=== PATIENT | female | born 2005 | race Two or more races ===

== ENCOUNTER 2024-08-04 17:52 | Emergency (ER) | payer MEDICAID, SELFPAY ==
[2024-08-04 17:53] VITALS: BMI 30.4
[2024-08-04 18:05] VITALS: BP 107/75; PULSE 103; RESP 16; TEMP 36.4; O2SAT 97; BMI 29.8
--- NOTE | 2024-08-04 18:22 | XR_ITS ---
Examination: PA lateral chest 2 views Technique: Upright PA lateral chest 2 views Exam date and time: August 04, 2024 1844 hrs. Comparison June 10, 2020 Indications: Coughing with chest pain beginning 3 weeks ago. Findings: Normal heart size No pneumonia or pulmonary edema On the lateral view there is a possible 12 mm pulmonary nodule overlying the cardiac contour Impression: Recommend AP lordotic chest to exclude 12 mm pulmonary nodule
--- NOTE | 2024-08-04 18:26 | PD.EDURI ---
Upper Respiratory Inf. RME/HPI General Chief Complaint: Flu Like Symptoms Stated Complaint: DRY COUGH WITH CHEST PAIN X3WK Time Seen by Provider: 08/04/24 18:22 Arrival date/time: 08/04/24 17:52 18F with no significant PMH presents to ED with 3 weeks of cough. Patient denies SOB. Limitations: no limitations Related Data Previous Rx's ?Medication ?Instructions ?Recorded albuterol sulfate 90 mcg/actuation 2 puff inhalation QID PRN 06/10/20 aerosol inhaler shortness of breath or wheezing #18 grams cetirizine 10 mg tablet (Zyrtec) 10 mg PO QDAY PRN allergy symptoms 06/10/20 #30 tabs sodium chloride 0.65 % nasal spray 2 spray intranasal QID PRN nasal 06/10/20 aerosol (Saline Nasal) congestion #60 mL ibuprofen 800 mg tablet 800 mg PO TID PRN pain #30 tabs 07/18/21 ibuprofen 800 mg tablet 800 mg PO TID PRN pain #30 tabs 02/21/24 amoxicillin 500 mg tablet 1,000 mg (2 x 500 mg) PO TID 5 08/05/24 days #30 tabs azithromycin 250 mg tablet See Rx Instructions PO .COMPLEX #6 08/05/24 tabs Allergies Allergy/AdvReac Type Severity Reaction Status Date / Time albuterol Allergy Severe SLEEPY Verified 08/04/24 17:55 Review of Systems Review of Systems Systems Reviewed: All systems reviewed, normal except as documented Constitutional Constitutional: Reports system reviewed and no additional complaints, except as documented, Denies fever(s) and Denies headache(s) ENT Ears, Nose, Mouth, and Throat: Denies disequilibrium and Denies headache(s) Cardiovascular Cardiovascular: Reports system reviewed and no additional complaints, except as documented, Denies chest pain and Denies dyspnea Respiratory Respiratory: Reports system reviewed and no additional complaints, except as documented, Reports as per HPI, Reports cough and Denies dyspnea Gastrointestinal Gastrointestinal: Reports system reviewed and no additional complaints, except as documented, Denies abdominal pain, Denies nausea and Denies vomiting Neurologic Neurologic: Reports system reviewed and no additional complaints, except as documented, Denies confusion, Denies disequilibrium and Denies headache(s) Psychiatric Psychiatric: Denies confusion Past Medical History Past Medical History CARDIAC: Negative Congestive Heart Failure RESPIRATORY: Negative Chronic Obstructive Pulmonary Disease (COPD) GENITOURINARY: Negative Renal Disease ENDOCRINE: Negative Diabetes Mellitus Type 1 or Diabetes Mellitus Type 2 Social History SMOKING STATUS: Never smoker ED Exam General Limitations: Present no limitations General appearance: Present alert and in no apparent distress Head Head exam: Present atraumatic Eye Eye exam: Present normal appearance, PERRL and EOMI ENT ENT exam: Present normal exam, normal oropharynx and mucous membranes moist Neck Neck exam: Present normal inspection, full ROM and trachea midline Chest Chest inspection: Present normal inspection and symmetric chest wall rise Expanded Respiratory Exam Location: Right: decreased breath sounds Cardiovascular Cardiovascular exam: Present regular rate, normal rhythm and normal heart sounds Abdominal Exam Abdominal exam: Present soft and normal bowel sounds Extremities Exam Extremities exam: Present normal inspection and full ROM Back Exam Back exam: Present normal inspection and full ROM Neurological Exam Neurological exam: Present alert, oriented X3 and CN II-XII intact Psychiatric Psychiatric exam: Present normal affect and normal mood Skin Skin exam: Present warm, dry, intact and normal color Course Quality Measures none Orders Category Date Time Status CT chest wo con Stat Exams 08/04/24 21:32 Completed XR chest 2V Stat Exams 08/04/24 18:22 Completed HCG Qualitative,Urine Stat Lab 08/04/24 22:15 Completed Dexamethasone Inj [Decadron Inj] Med 08/04/24 19:33 Discontinued 10 mg PO X1 ONE cefTRIAXone [Rocephin] 1,000 mg Med 08/05/24 00:03 Discontinued Lidocaine 1% 20 ml [Xylocaine 1% 20 ML] 2.1 ml IM X1 Vital Signs Vital signs: Vital Signs Temperature 97.6 F 08/04/24 18:05 Pulse Rate 103 H 08/04/24 18:05 Respiratory Rate 16 08/04/24 18:05 Blood Pressure 107/75 08/04/24 18:05 Pulse Oximetry (%) 97 08/04/24 18:05 Oxygen Delivery Method Room Air 08/04/24 18:05 O2 at 97% on RA and WNLs Upper Respiratory Infection MDM Narrative MDM Narrative:: 18F with no significant PMH presents to ED with 3 weeks of cough. Patient denies SOB. Physical exam reveals some reduced lung sounds in R side, but otherwise clear ENT. Patient is afebrile, calm, and alert. CXR reveals possible pulmonary nodule. CT reveals bilateral PNA. Patient data External records reviewed:: [facility] previous records Clinical information provided by:: patient Social determinants that could affect healthcare access:: none Patient has the following chronic illnesses:: none How is presenting disease/condition affected by chronic disease/condition?: no chronic disease Evaluation data The following diagnostics were reviewed and interpreted by me:: radiology exam(s) Lab and/or radiology exams considered but not ordered:: ordered Interpretation Summary: above Medications / Prescriptions Medications or Prescriptions considered but not ordered:: ordered Medication administrations:: Medication Administration History Discontinued Medications Ceftriaxone Sodium 1,000 mg/ (Lidocaine HCl 2.1 ml) 0 mg IM X1 ONE Stop: 08/05/24 00:04 Dexamethasone Sodium Phosphate (Dexamethasone Sod Phos Inj 10 Mg/Ml Vial) 10 mg PO X1 ONE Stop: 08/04/24 19:34 Last Admin: 08/04/24 19:59 Dose: 10 mg Documented By: MP above Consultations Consultation(s) initiated? (list below): No Diagnosis Upper Respiratory Differential Diagnosis: upper respiratory infection, croup, otitis media, sinusitis, viral infection, bronchitis, influenza, pharyngitis and other (CAP) Most likely diagnosis given after review of the tests above:: CAP Admission Indicated Admission indicated?: not indicated Admission Request Was there a request for admission?: No Disposition Plan Disposition Plan: Discharge Discharge Attestation Discharge Attestation: The patient and all family members were given an opportunity to ask questions and understood the discharge instructions. Discharge instructions specifically effects, indications for sooner follow up or return to the emergency department, and the expected course of current diagnosis. Patient condition: Stable Discharge Plan Plan Patient Disposition: HOME (Self Care) Disposition Comment: Stable Prescriptions/Referrals Prescriptions/Med Rec: New amoxicillin 500 mg tablet 1,000 mg PO TID 5 Days Qty: 30 0RF azithromycin 250 mg tablet See Rx Instructions .ROUTE .COMPLEX Qty: 6 0RF Rx Instructions: For 250 mg dose pack: take 500 mg today (day 1), then 250 mg for 4 days (days 2-5) No Action ibuprofen 800 mg tablet 800 mg PO TID PRN (Reason: pain) Qty: 30 0RF albuterol sulfate 90 mcg/actuation HFA aerosol inhaler 2 puff inhalation QID PRN (Reason: shortness of breath or wheezing) Qty: 18 0RF cetirizine [Zyrtec] 10 mg tablet 10 mg PO QDAY PRN (Reason: allergy symptoms) Qty: 30 0RF sodium chloride [Saline Nasal] 0.65 % aerosol,spray 2 spray intranasal QID PRN (Reason: nasal congestion) Qty: 60 0RF ibuprofen 800 mg tablet 800 mg PO TID PRN (Reason: pain) Qty: 30 0RF Referrals: Aggie Pena FNP [Primary Care Provider] - In 1 week Problem List Clinical Impression: CAP (community acquired pneumonia) Patient/Caregiver Discharge Instructions Education Materials: ED Pneumonia (Adult) Additional Instructions: Please follow-up with PCP within 24-48 hours and return immediately if symptoms worsen. Print Language: Swedish Stand Alone Forms: Patient Portal Info Letter PA/FLOAT OPERATOR Supervising Physician SUKUMAR/MATT Supervising Physician: Dr. Amato
[2024-08-04] MEDS: DEXAMETHASONE SOD PHOS INJ 10 MG/ML VIAL PO (19:59)
--- NOTE | 2024-08-04 21:32 | XR_ITS ---
Examination: CT chest, without intravenous contrast. Sagittal and coronal 2-D reconstructions. Exam date and time: August 04, 2024 1121 hrs. Indications: Coughing chest pain beginning 3 weeks ago CTDI:vol (mGy) 4.7 DLP: (mGycm) 479 Technique: Multiple 3.0 mm axial sections of the chest to been obtained. Bone and lung density settings are obtained. Sagittal and coronal 2-D reconstructions have been obtained. Low dose protocols were performed. One or more of the following dose reduction techniques were used; automated exposure control, adjustment of the mA and/or KV according to patient size, use of iterative reconstruction technique. Findings: Thoracic aorta pulmonary arteries appear intact No paratracheal tracheobronchial or bronchopulmonary adenopathy Soft foci of parenchymal disease in both upper lobes consistent with early pneumonia No pulmonary edema Liver and spleen appear intact Osseous structures intact No hydronephrosis Impression: Early pneumonia both upper lobes
[2024-08-04 22:58] LABS: HCG Qualitative,Urine Negative
[2024-08-04 23:02] VITALS: BP 111/77; PULSE 88; RESP 16; TEMP 36.8; O2SAT 97
[2024-08-05] MEDS: cefTRIAXone 1,000 MG, LIDOCAINE 1% 20 ML 2.1 ML IM (00:10)
== END 2024-08-05 00:17 | disposition home or self-care (01) ==
PROVIDERS: Physician Assistant; Emergency Provider Emergency Medicine; PCP Nurse Practitioner Family
DX: J18.9 Pneumonia, unspecified organism (principal)
CPT/HCPCS: 71046; 71250; 81025; 96372; 99284; J0696; J1100; J3490

== ENCOUNTER 2024-08-20 20:21 | Emergency (ER) | payer MEDICAID, SELFPAY ==
[2024-08-20 20:21] VITALS: BMI 29.6
[2024-08-20 21:09] VITALS: BP 99/68; PULSE 76; RESP 16; TEMP 36.7; O2SAT 98
--- NOTE | 2024-08-20 21:23 | XR_ITS ---
Examination: Abdomen sonogram, Limited Date and time of exam: August 20, 2024 1112 hrs. Indications: Right upper abdominal pain beginning today Technique: Real-time ferguson scale transabdominal sonographic images of the upper abdomen obtained. Findings: Normal gallbladder Normal common bile duct 0.4 cm Pancreatic head 2.1 cm Liver 14.9 cm no focal liver lesions Normal hepatopedal portal venous flow Patent IVC Impression: Negative examination
--- NOTE | 2024-08-20 21:23 | PD.EDABDPN ---
ED Abdominal Pain RME/HPI General Chief Complaint: Abdominal Pain Stated complaint: ABD PAIN Time seen by provider: 08/20/24 21:19 Arrival date/time: 08/20/24 20:21 RME / HPI RME / HPI narrative: 18-year-old female patient with no significant medical history, came in for evaluation regarding epigastric pain. Onset of symptoms about 2 hours prior to ER visit, after eating body to an eating chicken, patient developed sudden onset of epigastric pain radiating to the right upper quadrant, described as crampy, severity 8 out of 10 associated with vomiting. Denies any fever denies any other complaints no medications taken prior to arrival. Related Data Previous Rx's ?Medication ?Instructions ?Recorded albuterol sulfate 90 mcg/actuation 2 puff inhalation QID PRN 06/10/20 aerosol inhaler shortness of breath or wheezing #18 grams cetirizine 10 mg tablet (Zyrtec) 10 mg PO QDAY PRN allergy symptoms 06/10/20 #30 tabs sodium chloride 0.65 % nasal spray 2 spray intranasal QID PRN nasal 06/10/20 aerosol (Saline Nasal) congestion #60 mL ibuprofen 800 mg tablet 800 mg PO TID PRN pain #30 tabs 07/18/21 ibuprofen 800 mg tablet 800 mg PO TID PRN pain #30 tabs 02/21/24 azithromycin 250 mg tablet See Rx Instructions PO .COMPLEX #6 08/05/24 tabs Allergies Allergy/AdvReac Type Severity Reaction Status Date / Time albuterol Allergy Severe SLEEPY Verified 08/20/24 20:23 Review of Systems Review of Systems Narrative Review of Systems: Review of system reviewed and within normal limits except mentioned in HPI ED Exam Narrative Physical exam: VITAL SIGNS: Reviewed. GENERAL APPEARANCE: Alert and interactive, follows commands, no acute distress, HEAD AND FACE: Non-traumatic. ENT: PERRL, pink conjunctivitis, eyelid no trauma, Mucous membrane moist. NECK: Supple, nontender, no nuchal rigidity. CHEST: No tenderness, no crepitus, no paradoxical movement, no retractions. LUNGS: Clear, well ventilated, symmetric, no rales, no wheezing, no ronchi, no stridor, good breath sounds bilaterally. HEART: Regular rate, regular rhythm, no murmur, no gallops. ABDOMEN: Soft, positive bowel sounds, nondistended, no guarding, epigastric tenderness, no rebound, no masses, RECTAL: Deferred. GENITAL: Deferred. NEUROLOGICAL: Gross motor function intact sensory function intact, Appropriate for age. MUSCULOSKELETAL: low back nontender, full range of motion. EXTREMITIES: Nontender, full range of motion. SKIN: Color pink, dry, no rash, no lacerations, no abrasions, no contusions. LYMPHATICS: Deferred. Course Orders Category Date Time Status US gall bladder Stat Exams 08/20/24 21: Ordered CBC Stat Lab 08/20/24 21:23 Ordered Comprehensive Metabolic Panel Stat Lab 08/20/24 21: Ordered HCG Qualitative,Urine Stat Lab 08/20/24 21: Ordered Lipase Stat Lab 08/20/24 21: Ordered Partial Thromboplastin Time Stat Lab 08/20/24 21: Ordered Prothrombin Time with INR Stat Lab 08/20/24 21:23 Ordered UA, C/S IF [Urinalysis, C/S if Indicated] Stat Lab 08/20/24 21:23 Ordered Ketorolac Inj [Toradol Inj] Med 08/20/24 21:23 Once 30 mg IM X1 ONE Ondansetron Odt [Zofran Odt] Med 08/20/24 21:23 Once 4 mg PO X1 ONE Vital Signs Vital signs: Vital Signs Temperature 98.1 F 08/20/24 21:09 Pulse Rate 76 08/20/24 21:09 Respiratory Rate 16 08/20/24 21:09 Blood Pressure 99/68 08/20/24 21:09 Pulse Oximetry (%) 98 08/20/24 21:09 Oxygen Delivery Method Room Air 08/20/24 21:09 Abdominal Pain MDM MDM Narrative MDM Narrative:: 18-year-old female patient with no significant medical history, came in for evaluation regarding epigastric pain. Onset of symptoms about 2 hours prior to ER visit, after eating body to an eating chicken, patient developed sudden onset of epigastric pain radiating to the right upper quadrant, described as crampy, severity 8 out of 10 associated with vomiting. Denies any fever denies any other complaints no medications taken prior to arrival. Discharge Plan Prescriptions/Referrals Prescriptions/Med Rec: No Action ibuprofen 800 mg tablet 800 mg PO TID PRN (Reason: pain) Qty: 30 0RF albuterol sulfate 90 mcg/actuation HFA aerosol inhaler 2 puff inhalation QID PRN (Reason: shortness of breath or wheezing) Qty: 18 0RF cetirizine [Zyrtec] 10 mg tablet 10 mg PO QDAY PRN (Reason: allergy symptoms) Qty: 30 0RF sodium chloride [Saline Nasal] 0.65 % aerosol,spray 2 spray intranasal QID PRN (Reason: nasal congestion) Qty: 60 0RF azithromycin 250 mg tablet See Rx Instructions .ROUTE .COMPLEX Qty: 6 0RF Rx Instructions: For 250 mg dose pack: take 500 mg today (day 1), then 250 mg for 4 days (days 2-5) ibuprofen 800 mg tablet 800 mg PO TID PRN (Reason: pain) Qty: 30 0RF Patient/Caregiver Discharge Instructions Print Language: Montenegrin
[2024-08-20] MEDS: ONDANSETRON ODT 4 MG TABRAP PO (21:56)
[2024-08-20] MEDS: KETOROLAC INJ 60 MG/2 ML VIAL 30 MG IM (21:56)
[2024-08-20 22:05] LABS: Collection Type, Urine Clean Catch
[2024-08-20 22:12] LABS: Basophils % (Auto) 0 % (0-2.5); Eosinophils # (Auto) 0.1 Thou/mm3 (0.0-0.5); Eosinophils % (Auto) 1 % (0-10); Hematocrit 39.6 % (36.0-46.0); Hemoglobin 13.1 g/dL (12.0-16.0); Immature Granulocytes % (Auto) 0 % (0-0); Immature Granulocytes Auto 0.03 Thou/mm3 (0.00-0.00); Lymphocytes # (Auto) 2.1 Thou/mm3 (1.0-4.8); Lymphocytes % (Auto) 21 % (10-50); Mean Corpuscular HGB Conc 33.1 g/dl (31.0-37.0); Mean Corpuscular Hemoglobin 30.1 pg (25.0-35.0); Mean Corpuscular Volume 91 fL (80-100); Monocytes # (Auto) 0.7 Thou/mm3 (0.0-0.8); Monocytes % (Auto) 7 % (0-12); Neutrophils # (Auto) 7.2 Thou/mm3 (1.8-7.7); Neutrophils % (Auto) 71 % (37-80); Nucleated Red Blood Cell % 0 /100 WBC (0); Platelet Count 233 Thou/mm3 (140-440); RDW Standard Deviation 44.7 fL (36.4-46.3); Red Blood Count 4.35 Miln/mm3 (4.00-5.20); White Blood Count 10.2 Thou/mm3 (4.5-11.0)
[2024-08-20 22:16] LABS: HCG Qualitative,Urine Negative
[2024-08-20 22:29] LABS: Alanine Aminotransferase 39 U/L (10-49); Albumin, Serum 4.4 gm/dL (3.5-5.0); Albumin/Globulin Ratio 1.7 (1.2-2.2); Alkaline Phosphatase 81 U/L (46-116); Anion Gap 9 (7-16); Aspartate Amino Transferase 74 U/L (0-34); BUN/Creatinine Ratio 23 Ratio (12-20); Bilirubin,Total 0.4 mg/dL (0.3-1.2); Blood Urea Nitrogen 14 mg/dL (9-23); Calcium 9.8 mg/dL (8.3-10.6); Calcium (Corrected) 9.8 mg/dL (8.5-10.1); Carbon Dioxide 28.1 mMol/L (20.0-31.0); Chloride 103 mMol/L (98-107); Creatinine (Component) 0.6 mg/dL (0.6-1.3); Estimated Creatinine Clearance 174.1 mL/min (>60); Globulin 2.6 gm/dL (2.3-3.5); Glucose 85 mg/dL (74-106); Lipase 46 U/L (12-53); Osmolality,Calculated 278 (275-295); Potassium 3.5 mMol/L (3.4-5.1); Sodium 140 mMol/L (136-145); eGFR > 60 See Note
[2024-08-20 22:31] LABS: Bilirubin,Urine Negative (Negative); Blood,Urine 1+ (Negative); Clarity,Urine Turbid (Clear/Hazy); Color,Urine Yellow (Lt Yel-Yel); Culture Indicated,Urine Not Indicated; Glucose, Urine Negative (Negative); Ketones,Urine 1+ (Negative); Leukocyte Esterase,Urine Positive (Negative); Nitrite,Urine Negative (Negative); Protein,Urine Negative (Neg - Trace); RBC,Urine 4 /hpf (0-3); Specific Gravity,Urine 1.024 (1.001-1.035); Squamous Epithelial Cell,Urine 14 /hpf (0-5); Urobilinogen,Urine Negative mg/dL (0.0-1.0); WBC,Urine 7 /hpf (0-5)
[2024-08-20 22:42] LABS: Partial Thromboplastin Time 31.6 Seconds (22.0-36.0)
--- NOTE | 2024-08-20 23:04 | PD.EDRME ---
Rapid Medical Screening Exam RME Arrival date/time: 08/20/24 20:21 Chief Complaint: Abdominal Pain Time Seen by Provider: 08/20/24 21:19 Vital signs: Vital Signs Temperature 98.1 F 08/20/24 21:09 Pulse Rate 76 08/20/24 21:09 Respiratory Rate 16 08/20/24 21:09 Blood Pressure 99/68 08/20/24 21:09 Pulse Oximetry (%) 98 08/20/24 21:09 Oxygen Delivery Method Room Air 08/20/24 21:09 RME Narrative: 18-year-old female patient came in for evaluation regarding epigastric pain. Onset of symptoms about 2 hours prior to ER visit after eating tacos and chicken. Associated with vomiting.
--- NOTE | 2024-08-21 00:18 | EDNOTE_ITS ---
<Statement entered by Karley Ibrahim MD - 08/31/24 11:51> As co-signing physician, I was present and available for consult prn. I concur with the plan and care as documented by the midlevel provider. ED Abdominal Pain RME/HPI General Chief Complaint: Abdominal Pain Stated complaint: ABD PAIN Time seen by provider: 08/20/24 21:19 Arrival date/time: 08/20/24 20:21 18-year-old female presents emergency department complaining of epigastric pain that started earlier today after eating tacos with 1 episode of vomiting. Patient denies any other associated symptoms. Source: patient Mode of arrival: ambulatory Limitations: no limitations RME / HPI RME / HPI narrative: 18-year-old female patient came in for evaluation regarding epigastric pain. Onset of symptoms about 2 hours prior to ER visit after eating tacos and chicken. Associated with vomiting. Related Data Previous Rx's ?Medication ?Instructions ?Recorded albuterol sulfate 90 mcg/actuation 2 puff inhalation QID PRN 06/10/20 aerosol inhaler shortness of breath or wheezing #18 grams cetirizine 10 mg tablet (Zyrtec) 10 mg PO QDAY PRN allergy symptoms 06/10/20 #30 tabs sodium chloride 0.65 % nasal spray 2 spray intranasal QID PRN nasal 06/10/20 aerosol (Saline Nasal) congestion #60 mL ibuprofen 800 mg tablet 800 mg PO TID PRN pain #30 tabs 07/18/21 ibuprofen 800 mg tablet 800 mg PO TID PRN pain #30 tabs 02/21/24 azithromycin 250 mg tablet See Rx Instructions PO .COMPLEX #6 08/05/24 tabs Allergies Allergy/AdvReac Type Severity Reaction Status Date / Time albuterol Allergy Severe SLEEPY Verified 08/20/24 20:23 Review of Systems Review of Systems Systems Reviewed: All systems reviewed, normal except as documented Constitutional Constitutional: Reports system reviewed and no additional complaints, except as documented, Denies body ache(s), Denies chills and Denies fever(s) Eyes Eyes: Reports system reviewed and no additional complaints, except as documented and Denies change in vision ENT Ears, Nose, Mouth, and Throat: Reports system reviewed and no additional complaints, except as documented, Denies disequilibrium, Denies dizziness, Denies sore throat and Denies vertigo Cardiovascular Cardiovascular: Reports system reviewed and no additional complaints, except as documented, Denies chest pain and Denies dyspnea Respiratory Respiratory: Reports system reviewed and no additional complaints, except as documented, Denies chest congestion, Denies cough and Denies dyspnea Gastrointestinal Gastrointestinal: Reports system reviewed and no additional complaints, except as documented, Reports abdominal pain, Reports nausea and Reports vomiting Musculoskeletal Musculoskeletal: Reports system reviewed and no additional complaints, except as documented, Denies abnormal gait and Denies arthralgias Integumentary/Breasts Skin/Breast: Reports system reviewed and no additional complaints, except as documented, Denies erythema, Denies rash and Denies wounds Neurologic Neurologic: Reports system reviewed and no additional complaints, except as documented, Denies abnormal gait, Denies disequilibrium, Denies dizziness and Denies vertigo Past Medical History Past Medical History CARDIAC: Negative Congestive Heart Failure RESPIRATORY: Negative Chronic Obstructive Pulmonary Disease (COPD) GENITOURINARY: Negative Renal Disease ENDOCRINE: Negative Diabetes Mellitus Type 1 or Diabetes Mellitus Type 2 Social History SMOKING STATUS: Never smoker ED Exam General Limitations: Present no limitations General appearance: Present alert and in no apparent distress Head Head exam: Present atraumatic Eye Eye exam: Present normal appearance, PERRL and EOMI ENT ENT exam: Present normal exam, normal oropharynx and mucous membranes moist Neck Neck exam: Present normal inspection, full ROM and trachea midline Chest Chest inspection: Present normal inspection and symmetric chest wall rise Respiratory Respiratory exam: Present normal lung sounds bilaterally Cardiovascular Cardiovascular exam: Present regular rate, normal rhythm and normal heart sounds Abdominal Exam Abdominal exam: Present soft and normal bowel sounds Extremities Exam Extremities exam: Present normal inspection and full ROM Back Exam Back exam: Present normal inspection and full ROM Neurological Exam Neurological exam: Present alert, oriented X3 and CN II-XII intact Psychiatric Psychiatric exam: Present normal affect and normal mood Skin Skin exam: Present warm, dry, intact and normal color Course Quality Measures none Orders Category Date Time Status US gall bladder Stat Exams 08/20/24 21:23 Completed CBC Stat Lab 08/20/24 21:44 Completed Comprehensive Metabolic Panel Stat Lab 08/20/24 21:44 Completed HCG Qualitative,Urine Stat Lab 08/20/24 21:59 Completed Lipase Stat Lab 08/20/24 21:44 Completed Partial Thromboplastin Time Stat Lab 08/20/24 21:44 Completed Prothrombin Time with INR Stat Lab 12/14/24 21:44 Completed UA, C/S IF [Urinalysis, C/S if Indicated] Stat Lab 08/20/24 21:59 Completed Ketorolac Inj [Toradol Inj] Med 08/20/24 21:23 Discontinued 30 mg IM X1 ONE Ondansetron Odt [Zofran Odt] Med 08/20/24 21:23 Discontinued 4 mg PO X1 ONE Vital Signs Vital signs: Vital Signs Temperature 98.1 F 08/20/24 21:09 Pulse Rate 76 08/20/24 21:09 Respiratory Rate 16 08/20/24 21:09 Blood Pressure 99/68 08/20/24 21:09 Pulse Oximetry (%) 98 08/20/24 21:09 Oxygen Delivery Method Room Air 08/20/24 21:09 98% room air within normal limits Abdominal Pain MDM MDM Narrative MDM Narrative:: 18-year-old female presents emergency department complaining of epigastric pain that started earlier today after eating tacos with 1 episode of vomiting. Patient denies any other associated symptoms. Abdomen soft and nontender. CBC was unremarkable for any leukocytosis. CMP was unremarkable for any elevated LFTs or gross electrolyte abnormalities. Urinalysis also unremarkable. Ultrasound gallbladder was also unremarkable. Patient appears nontoxic and is hemodynamically stable. Patient reports feeling a lot better and did not have any vomiting episodes while in the emergency room. Patient structured to follow-up with primary care provider return to emergency department for any worsening symptoms or as needed. Patient data External records reviewed:: [facility] previous records Clinical information provided by:: patient and family Social determinants that could affect healthcare access:: none Patient has the following chronic illnesses:: N/A How is presenting disease/condition affected by chronic disease/condition?: no chronic disease Evaluation data The following diagnostics were reviewed and interpreted by me:: lab results and radiology exam(s) Lab and/or radiology exams considered but not ordered:: Ordered Interpretation Summary: Interpreted by me Medications / Prescriptions Medications or Prescriptions considered but not ordered:: Ordered Medication administrations:: Medication Administration History Discontinued Medications Ketorolac Tromethamine (Ketorolac Inj 60 Mg/2 Ml Vial) 30 mg IM X1 ONE Stop: 08/20/24 21:24 Last Admin: 08/20/24 21:56 Dose: 30 mg Documented By: Ondansetron HCl (Ondansetron Odt 4 Mg Tabrap) 4 mg PO X1 ONE; Protocol Stop: 08/20/24 21:24 Last Admin: 08/20/24 21:56 Dose: 4 mg Documented By: SE Given Consultations Consultation(s) initiated? (list below): No Diagnosis Differential diagnosis abdominal pain: abdominal pain, acute appendicitis, calculus of kidney, constipation, diverticulitis, endometriosis, gastroenteritis, pancreatitis and small bowel obstruction Most likely diagnosis given after review of the tests above:: Abdominal pain Admission Indicated Admission indicated?: not indicated Admission Request Was there a request for admission?: No Disposition Plan Disposition Plan: Discharge Discharge Attestation Discharge Attestation: The patient and all family members were given an opportunity to ask questions and understood the discharge instructions. Discharge instructions specifically effects, indications for sooner follow up or return to the emergency department, and the expected course of current diagnosis. Patient condition: Stable Discharge Plan Plan Patient Disposition: HOME (Self Care) Disposition Comment: Stable Prescriptions/Referrals Prescriptions/Med Rec: No Action ibuprofen 800 mg tablet 800 mg PO TID PRN (Reason: pain) Qty: 30 0RF albuterol sulfate 90 mcg/actuation HFA aerosol inhaler 2 puff inhalation QID PRN (Reason: shortness of breath or wheezing) Qty: 18 0RF cetirizine [Zyrtec] 10 mg tablet 10 mg PO QDAY PRN (Reason: allergy symptoms) Qty: 30 0RF sodium chloride [Saline Nasal] 0.65 % aerosol,spray 2 spray intranasal QID PRN (Reason: nasal congestion) Qty: 60 0RF azithromycin 250 mg tablet See Rx Instructions .ROUTE .COMPLEX Qty: 6 0RF Rx Instructions: For 250 mg dose pack: take 500 mg today (day 1), then 250 mg for 4 days (days 2-5) ibuprofen 800 mg tablet 800 mg PO TID PRN (Reason: pain) Qty: 30 0RF Referrals: No Primary/Family,Physician [Primary Care Provider] - In 1 week Problem List Clinical Impression: Abdominal pain Patient/Caregiver Discharge Instructions Discharge Activity: activity as tolerated Education Materials: Abdominal Pain Additional Instructions: Drink plenty of fluids and stay hydrated. Follow-up with primary care provider in 24 to 48 hours. Return to emergency department for any worsening symptoms or as needed. Print Language: Ukrainian Stand Alone Forms: Alicia Award Info., Patient Portal Info Letter PA/RECEPTIONIST/TELEPHONE OPERATOR Supervising Physician PA/RECEPTIONIST/TELEPHONE OPERATOR Supervising Physician: Dr. Ibrahim
[2024-08-21 00:24] VITALS: RESP 18
== END 2024-08-21 00:25 | disposition home or self-care (01) ==
PROVIDERS: Nurse Practitioner Family; Emergency Provider Emergency Medicine
DX: R10.13 Epigastric pain (principal); R10.11 Right upper quadrant pain; R11.10 Vomiting, unspecified
CPT/HCPCS: 36415; 76705; 80053; 81001; 81025; 83690; 85025; 85610; 85730; 96372; 99284; J1885; Q0162

== ENCOUNTER 2025-03-06 16:57 | Emergency (ER) | payer MEDICAID, SELFPAY ==
[2025-03-06 17:06] VITALS: BP 98/63; PULSE 76; RESP 19; TEMP 36.6; O2SAT 99; BMI 28.8
--- NOTE | 2025-03-06 17:46 | EDNOTE_ITS ---
ED OB Contraction Preg RMI/HPI General Chief complaint: Vaginal Bleeding Stated complaint: 5 weeks OB, vaginal bleeding Time Seen by Provider: 03/06/25 17:38 Arrival date/time: 03/06/25 16:57 RME / HPI RME / HPI Narrative: 19-year-old female with no past medical history presents to the ED with a complaint of vaginal bleeding and cramping. She is . She states her symptoms began last night at approximately 8 PM. She went to [facility] last night. She was told she was approximately 5 weeks . An ultrasound revealed a gestational sac but no pole. She was told her beta-hCG quant was approximately 2800. She was also diagnosed with a UTI, and told she was having a threatened miscarriage. She was prescribed an antibiotic and has had 1 dose. Since 10 AM, she has fully soaked 2 maxi pads in the bleeding and cramping is getting worse with a passage of large clots since her arrival in the ED. Related Data Previous Rx's ?Medication ?Instructions ?Recorded albuterol sulfate 90 mcg/actuation 2 puff inhalation Q ID PRN 06/10/20 aerosol inhaler shortness of breath or wheez ing #18 grams cetirizine 10 mg tablet (Zyrtec) 10 mg PO QDAY PRN all ergy symptoms 06/10/20 #30 tabs sodium chloride 0.65 % nasal spray 2 spray intranasal QID PRN nasal 06/10/20 aerosol (Saline Nasal) congestion #60 mL ibuprofen 800 mg tablet 800 mg PO TID PRN pain #30 t abs 07/18/21 ibuprofen 800 mg tablet 800 mg PO TID PRN pain #30 t abs 02/21/24 azithromycin 250 mg tablet See Rx Instructions PO .COM PLEX #6 08/05/24 tabs Allergies Allergy/AdvReac Type Severity Reaction Status Date / Time albuterol Allergy Severe SLEEPY Verified 03/06/25 17:01 Review of Systems Review of Systems Systems Reviewed: All systems reviewed, normal except as documented Past Medical History Past Medical History CARDIAC: Negative Congestive Heart Failure RESPIRATORY: Negative Chronic Obstructive Pulmonary Disease (COPD) GENITOURINARY: Negative Renal Disease ENDOCRINE: Negative Diabetes Mellitus Type 1 or Diabetes Mellitus Type 2 Social History SMOKING STATUS: Never smoker ED Exam Narrative Physical exam: Alert and oriented 19-year-old female, mild acute pain distress and requesting something for pain. Vital signs blood pressure 98/63, pulse 76, respirations 19 and nonlabored, temp 97.8, O2 sat 99% on room air. Lungs are clear, regular rate and rhythm without murmurs, abdomen is soft with mild suprapubic and bilateral pelvic tenderness. No CVA tenderness noted. Urine cup sitting at bedside with large clots, no obvious tissue noted. Course Course Course Narrative: OB ultrasound Findings: Uterus 7.0 cm endometrial stripe 0.64 cm. Pedunculated fibroid off the uterine body 22 x 22 x 18 mm. Right ovary 4.3 cm arterial flow 18 mm follicular cyst. Left ovary 3.0 cm arterial flow. IMPRESSION: No intrauterine gestation. 22 x 22 x 18 mm uterine area of fibroid degeneration. Quality Measures none Orders Category Date Time Status US OB <= 14 weeks fetus Stat Exams 03/06/25 17:51 Completed ABO/RH Type Stat Lab 03/06/25 18:16 Completed Beta HCG,Quantitative Stat Lab 03/06/25 18:16 Completed CBC Stat Lab 03/06/25 18:16 Completed CMP [Comprehensive Metabolic Panel] Stat Lab 03/06/25 18:16 Completed UA, C/S IF [Urinalysis, C/S if Indicated] Stat Lab 03/06/25 17:51 Ordered Urine Culture Stat Lab 03/06/25 17:51 Ordered Vital Signs Vital signs: Vital Signs Temperature 97.8 F 03/06/25 17:06 Pulse Rate 76 03/06/25 17:06 Respiratory Rate 19 03/06/25 17:06 Blood Pressure 98/63 03/06/25 17:06 Pulse Oximetry (%) 99 03/06/25 17:06 Oxygen Delivery Method Room Air 03/06/25 17:06 Vaginal Bleeding MDM Narrative MDM Narrative: Advised patient to follow-up with her primary care physician tomorrow for referral to an [facility]. She is advised that if she cannot get into an [facility] by Thursday, she needs to return here for repeat hCG as well as ultrasound to rule out ectopic . She understands the need for close follow-up within 48 hours. Patient data External records reviewed:: None Clinical information provided by:: patient Social determinants that could affect healthcare access:: none Patient has the following chronic illnesses:: N/A How is presenting disease/condition affected by chronic disease/condition?: no chronic disease Evaluation data The following diagnostics were reviewed and interpreted by me:: lab results and radiology exam(s) Lab and/or radiology exams considered but not ordered:: N/A Interpretation Summary: Labs reveal a normal white count of 8.6, normal H&H of 13.3 and 39.4 with normal platelets of 211. CMP reveals normal electrolytes, normal BUN and creatinine, minimally elevated glucose of 109, and normal LFTs. Beta-hCG is 1773. Blood type is O+. OB ultrasound Findings: Uterus 7.0 cm endometrial stripe 0.64 cm. Pedunculated fibroid off the uterine body 22 x 22 x 18 mm. Right ovary 4.3 cm arterial flow 18 mm follicular cyst. Left ovary 3.0 cm arterial flow. IMPRESSION: No intrauterine gestation. 22 x 22 x 18 mm uterine area of fibroid degeneration. Medications / Prescriptions Medications or Prescriptions considered but not ordered:: N/A Medication administrations:: N/A Consultations Consultation(s) initiated? (list below): Yes Diagnosis Vaginal Bleeding Differential Diagnosis: missed , incomplete , ectopic without intrauterine and other (Complete ) Most likely diagnosis given after review of the tests above:: No intrauterine gestation, cannot exclude ectopic Admission Indicated Admission indicated?: not indicated Explain why admission is indicated or not indicated:: Patient is stable for discharge. Admission Request Was there a request for admission?: No Disposition Plan Disposition Plan: Discharge Discharge Attestation Discharge Attestation: The patient and all family members were given an opportunity to ask questions and understood the discharge instructions. Discharge instructions specifically effects, indications for sooner follow up or return to the emergency department, and the expected course of current diagnosis. Patient condition: Stable Discharge Plan Plan Patient Disposition: HOME (Self Care) Discharge Disposition comment: Stable and improved Prescriptions/Referrals Prescriptions/Med Rec: No Action ibuprofen 800 mg tablet 800 mg PO TID PRN (Reason: pain) Qty: 30 0RF albuterol sulfate 90 mcg/actuation HFA aerosol inhaler 2 puff inhalation QID PRN (Reason: shortness of breath or wheezing) Qty: 18 0RF cetirizine [Zyrtec] 10 mg tablet 10 mg PO QDAY PRN (Reason: allergy symptoms) Qty: 30 0RF sodium chloride [Saline Nasal] 0.65 % aerosol,spray 2 spray intranasal QID PRN (Reason: nasal congestion) Qty: 60 0RF azithromycin 250 mg tablet See Rx Instructions .ROUTE .COMPLEX Qty: 6 0RF Rx Instructions: For 250 mg dose pack: take 500 mg today (day 1), then 250 mg for 4 days (days 2-5) ibuprofen 800 mg tablet 800 mg PO TID PRN (Reason: pain) Qty: 30 0RF Referrals: No Primary/Family,Physician [Primary Care Provider] - In 1 week Problem List Clinical Impression: Vaginal bleeding, Uterine fibroid Impression comment: Cannot exclude ectopic without intrauterine . Patient/Caregiver Discharge Instructions Education Materials: ED Dysfunctional Uterine Bleeding, ED Uterine Fibroids Additional Instructions: Your quantitative hCG is currently at 1773, down from 2800 last night (per your recollection). You currently do no have an elevated white count or any signs of Anemia. Continue taking the antibiotic for your UTI until they are finished. Take Tylenol for any pain you are experiencing. Follow-up with your primary care physician tomorrow for referral to an [facility]. If you cannot get into an [facility] by Thursday, you needs to return here for repeat hCG as well as ultrasound to rule out ectopic . You understand the need for close follow-up within 48 hours. Return to the emergency department for any new or worsening symptoms. Print Language: Cypriot Stand Alone Forms: Alicia Award Info., Patient Portal Info Letter PA/MATT Supervising Physician SUKUMAR/MATT Supervising Physician: Dr. Nazario
--- NOTE | 2025-03-06 17:51 | XR_ITS ---
Examination: Complete OB ultrasound, less than 14 weeks, transabdominal Date and time of exam: March 06, 2025, 1817 hours INDICATIONS: Vaginal bleeding beginning 8:00 PM last night Technique: Obstetrical ultrasound images less than 14 weeks performed via transabdominal imaging Findings: Uterus 7.0 cm endometrial stripe 0.64 cm Pedunculated fibroid off the uterine body 22 x 22 x 18 mm Right ovary 4.3 cm arterial flow 18 mm follicular cyst Left ovary 3.0 cm arterial flow IMPRESSION: No intrauterine gestation 22 x 22 x 18 mm uterine area of fibroid degeneration
[2025-03-06 18:23] LABS: Basophils % (Auto) 1 % (0-2.5); Eosinophils % (Auto) 1 % (0-10); Hematocrit 39.4 % (36.0-46.0); Hemoglobin 13.3 g/dL (12.0-16.0); Immature Granulocytes % (Auto) 1 % (0-0); Immature Granulocytes Auto 0.07 Thou/mm3 (0.00-0.00); Lymphocytes # (Auto) 1.6 Thou/mm3 (1.0-4.8); Lymphocytes % (Auto) 19 % (10-50); Mean Corpuscular HGB Conc 33.8 g/dl (31.0-37.0); Mean Corpuscular Hemoglobin 31.1 pg (25.0-35.0); Mean Corpuscular Volume 92 fL (80-100); Monocytes # (Auto) 0.5 Thou/mm3 (0.0-0.8); Monocytes % (Auto) 5 % (0-12); Neutrophils # (Auto) 6.4 Thou/mm3 (1.8-7.7); Neutrophils % (Auto) 75 % (37-80); Nucleated Red Blood Cell % 0 /100 WBC (0); Platelet Count 211 Thou/mm3 (140-440); RDW Standard Deviation 41.3 fL (36.4-46.3); Red Blood Count 4.28 Miln/mm3 (4.00-5.20); White Blood Count 8.6 Thou/mm3 (3.6-11.0)
[2025-03-06 18:41] VITALS: BP 97/59; PULSE 69; RESP 18; TEMP 36.6; O2SAT 96
[2025-03-06 18:58] LABS: Alanine Aminotransferase 15 U/L (10-49); Albumin, Serum 4.3 gm/dL (3.5-5.0); Alkaline Phosphatase 59 U/L (46-116); Anion Gap 8 (7-16); Aspartate Amino Transferase 19 U/L (0-34); BUN/Creatinine Ratio 8 Ratio (12-20); Beta HCG,Quantitative 1773 mIU/mL (<5.0); Bilirubin,Total 0.3 mg/dL (0.3-1.2); Blood Urea Nitrogen 5 mg/dL (9-23); Calcium 9.5 mg/dL (8.3-10.6); Calcium (Corrected) 9.5 mg/dL (8.5-10.1); Chloride 105 mMol/L (98-107); Creatinine (Component) 0.6 mg/dL (0.6-1.3); Estimated Creatinine Clearance 170.5 mL/min (>60); Globulin 2.2 gm/dL (2.3-3.5); Glucose 109 mg/dL (74-106); Osmolality,Calculated 272 (275-295); Potassium 3.6 mMol/L (3.4-5.1); Sodium 137 mMol/L (136-145); Total Protein 6.5 gm/dL (5.7-8.2); eGFR > 60 See Note
[2025-03-06 19:00] VITALS: BP 105/66; PULSE 87; RESP 14; O2SAT 96
[2025-03-06 20:00] VITALS: BP 89/64; PULSE 77; RESP 18; TEMP 36.4; O2SAT 100
[2025-03-06 20:02] VITALS: BP 97/71; PULSE 70; RESP 16; O2SAT 100
--- NOTE | 2025-03-06 20:36 | PC.NURSE ---
pot is resting quietly with family at bedside. states pain is mild at this time. BP systolic 90s. pt states 90s is normal for her.
[2025-03-06 21:50] VITALS: BP 102/71; PULSE 80; RESP 16; TEMP 37; O2SAT 98
== END 2025-03-06 21:55 | disposition home or self-care (01) ==
PROVIDERS: Physician Assistant; Emergency Provider Emergency Medicine
DX: O20.9 Hemorrhage in early pregnancy, unspecified (principal); D25.9 Leiomyoma of uterus, unspecified
CPT/HCPCS: 36415; 76801; 80053; 81001; 84702; 85025; 86900; 86901; 87086; 99284

== ENCOUNTER 2025-03-08 12:18 | Emergency (ER) | payer MEDICAID, SELFPAY ==
[2025-03-08 12:18] VITALS: BMI 29.6
[2025-03-08 12:33] VITALS: BP 105/71; PULSE 76; RESP 16; TEMP 36.8; O2SAT 99
--- NOTE | 2025-03-08 12:52 | XR_ITS ---
Examination: OB Transvaginal ultrasound of the pelvis, complete Technique: Transvaginal sonographic images pelvis performed using ferguson scale imaging Exam date and time: March 08, 2025 1400 hours INDICATIONS: Miscarriage 3 days ago followed by vaginal bleeding FINDINGS: Uterus 8.4 cm endometrial stripe 0.6 cm Mild free fluid in the endometrium Right ovary 3.4 cm arterial flow 15 mm follicular cyst Left ovary 2.2 cm arterial flow IMPRESSION: No uterine mass or findings of retained products of conception.
--- NOTE | 2025-03-08 13:10 | EDNOTE_ITS ---
<Statement entered by Karley Ibrahim MD - 03/17/25 19:14> As co-signing physician, I was present and available for consult prn. I concur with the plan and care as documented by the midlevel provider. ED OB Contraction Preg RMI/HPI General Chief complaint: General Adult/Misc Complain Stated complaint: F/U ULTRASOUND & LABS FOR ECTOPIC Time Seen by Provider: 03/08/25 12:30 Source: patient Arrival date/time: 03/08/25 12:18 19-year-old female with no known medical history presents to the emergency room with a chief complaint of needing a follow-up ultrasound to rule out an ectopic or miscarriage. Patient was seen here on 03/06/2025. Mode of arrival: ambulatory Limitations: no limitations Related Data Previous Rx's ?Medication ?Instructions ?Recorded albuterol sulfate 90 mcg/actuation 2 puff inhalation Q ID PRN 06/10/20 aerosol inhaler shortness of breath or wheez ing #18 grams cetirizine 10 mg tablet (Zyrtec) 10 mg PO QDAY PRN all ergy symptoms 06/10/20 #30 tabs sodium chloride 0.65 % nasal spray 2 spray intranasal QID PRN nasal 06/10/20 aerosol (Saline Nasal) congestion #60 mL ibuprofen 800 mg tablet 800 mg PO TID PRN pain #30 t abs 07/18/21 ibuprofen 800 mg tablet 800 mg PO TID PRN pain #30 t abs 02/21/24 azithromycin 250 mg tablet See Rx Instructions PO .COM PLEX #6 08/05/24 tabs Allergies Allergy/AdvReac Type Severity Reaction Status Date / Time albuterol Allergy Severe SLEEPY Verified 03/08/25 12:20 Review of Systems Review of Systems Systems Reviewed: All systems reviewed, normal except as documented Constitutional Constitutional: Reports system reviewed and no additional complaints, except as documented, Denies fatigue, Denies fever(s), Denies headache(s) and Denies weakness Eyes Eyes: Reports system reviewed and no additional complaints, except as documented, Denies blurry vision and Denies change in vision ENT Ears, Nose, Mouth, and Throat: Reports system reviewed and no additional complaints, except as documented, Denies otalgia, Denies headache(s), Denies nasal congestion, Denies throat swelling and Denies vertigo Cardiovascular Cardiovascular: Reports system reviewed and no additional complaints, except as documented, Denies chest pain, Denies dyspnea and Denies dyspnea on exertion Respiratory Respiratory: Reports system reviewed and no additional complaints, except as documented, Denies chest congestion, Denies cough, Denies dyspnea, Denies dyspnea on exertion and Denies wheezing Gastrointestinal Gastrointestinal: Reports system reviewed and no additional complaints, except as documented, Denies abdominal pain, Denies cramping, Denies nausea and Denies vomiting Genitourinary Genitourinary: Reports system reviewed and no additional complaints, except as documented and Reports abnormal vaginal bleeding Musculoskeletal Musculoskeletal: Reports system reviewed and no additional complaints, except as documented and Denies back pain Integumentary/Breasts Skin/Breast: Reports system reviewed and no additional complaints, except as documented and Denies wounds Neurologic Neurologic: Reports system reviewed and no additional complaints, except as documented, Denies confusion, Denies headache(s), Denies lack of coordination, Denies vertigo and Denies weakness Psychiatric Psychiatric: Reports system reviewed and no additional complaints, except as documented, Denies anxiety, Denies confusion, Denies depression, Denies paranoia, Denies suicidal ideation and Denies tactile hallucinations Endocrine Endocrine: Reports system reviewed and no additional complaints, except as documented and Denies fatigue Hematologic/Lymphatic Hematologic/Lymphatic: Reports system reviewed and no additional complaints, except as documented and Denies lymphadenopathy Allergic/Immunologic Allergic/Immunologic: Reports system reviewed and no additional complaints, except as documented, Denies throat swelling, Denies urticaria and Denies wheezing Past Medical History Past Medical History CARDIAC: Negative Congestive Heart Failure RESPIRATORY: Negative Chronic Obstructive Pulmonary Disease (COPD) GENITOURINARY: Negative Renal Disease ENDOCRINE: Negative Diabetes Mellitus Type 1 or Diabetes Mellitus Type 2 Social History SMOKING STATUS: Never smoker ED Exam General Limitations: Present no limitations General appearance: Present alert and in no apparent distress Head Head exam: Present atraumatic Eye Eye exam: Present normal appearance, PERRL and EOMI ENT ENT exam: Present normal exam, normal oropharynx and mucous membranes moist Neck Neck exam: Present normal inspection, full ROM and trachea midline Chest Chest inspection: Present normal inspection and symmetric chest wall rise Respiratory Respiratory exam: Present normal lung sounds bilaterally Cardiovascular Cardiovascular exam: Present regular rate, normal rhythm and normal heart sounds Abdominal Exam Abdominal exam: Present soft and normal bowel sounds; Absent distention, tenderness, guarding, rebound or rigidity Extremities Exam Extremities exam: Present normal inspection and full ROM Back Exam Back exam: Present normal inspection and full ROM Neurological Exam Neurological exam: Present alert, oriented X3 and CN II-XII intact Psychiatric Psychiatric exam: Present normal affect and normal mood Skin Skin exam: Present warm, dry, intact and normal color Course Quality Measures none Orders Category Date Time Status US OB transvaginal Stat Exams 03/08/25 12:52 Completed ABO/RH Type Stat Lab 03/08/25 13:06 Completed Beta HCG,Quantitative Stat Lab 03/08/25 13:06 Completed CBC Stat Lab 03/08/25 13:06 Completed CMP [Comprehensive Metabolic Panel] Stat Lab 03/08/25 13:06 Completed UA [Urinalysis] Stat Lab 03/08/25 14:45 Completed Vital Signs Vital signs: Vital Signs Temperature 98.3 F 03/08/25 12:33 Pulse Rate 76 03/08/25 12:33 Respiratory Rate 16 03/08/25 12:33 Blood Pressure 105/71 03/08/25 12:33 Pulse Oximetry (%) 99 03/08/25 12:33 Oxygen Delivery Method Room Air 03/08/25 12:33 O2 saturation 99% within normal limits Vaginal Bleeding MDM Narrative MDM Narrative: 19-year-old female with no known medical history presents to the emergency room with a chief complaint of needing a follow-up ultrasound to rule out an ectopic or miscarriage. Patient was seen here on 03/06/2025. Patient is hemodynamically stable and in no apparent distress Patient has a soft nontender abdomen patient denies any pelvic pain or abdominal pain. Patient states her bleeding has significantly decreased but she is still spotting when she wipes Ultrasound OB was completed and there is no intrauterine mass or any retained products of conception. The patient hCG levels dropped from 1741 on 03/06/2025 down to 530 today I spoke to the patient and told her that she had a miscarriage. Patient was educated to follow-up with her [facility] Patient was discharged and educated to follow-up with primary care provider in the next 24 to 48 hours and return to the emergency room for any evidence of w orsening signs or symptoms Patient data External records reviewed:: [facility] previous records Clinical information provided by:: patient Social determinants that could affect healthcare access:: none Patient has the following chronic illnesses:: No chronic illness How is presenting disease/condition affected by chronic disease/condition?: no chronic disease Evaluation data The following diagnostics were reviewed and interpreted by me:: lab results and radiology exam(s) Lab and/or radiology exams considered but not ordered:: Labs and radiology exams considered and ordered Interpretation Summary: Transvaginal OB ultrasound-FINDINGS: Uterus 8.4 cm endometrial stripe 0.6 cm Mild free fluid in the endometrium Right ovary 3.4 cm arterial flow 15 mm follicular cyst Left ovary 2.2 cm arterial flow IMPRESSION: No uterine mass or findings of retained products of conception. Medications / Prescriptions Medications or Prescriptions considered but not ordered:: No medication given Medication administrations:: No medication given Consultations Consultation(s) initiated? (list below): No Diagnosis Vaginal Bleeding Differential Diagnosis: missed , dysfunctional uterine bleeding, incomplete , ectopic without intrauterine , vaginal bleeding and other (Spontaneous ) Most likely diagnosis given after review of the tests above:: Spontaneous Admission Indicated Admission indicated?: not indicated Admission Request Was there a request for admission?: No Disposition Plan Disposition Plan: Discharge Discharge Attestation Discharge Attestation: The patient and all family members were given an opportunity to ask questions and understood the discharge instructions. Discharge instructions specifically effects, indications for sooner follow up or return to the emergency department, and the expected course of current diagnosis. Patient condition: Stable Discharge Plan Plan Patient Disposition: HOME (Self Care) Discharge Disposition comment: Stable Prescriptions/Referrals Prescriptions/Med Rec: No Action ibuprofen 800 mg tablet 800 mg PO TID PRN (Reason: pain) Qty: 30 0RF albuterol sulfate 90 mcg/actuation HFA aerosol inhaler 2 puff inhalation QID PRN (Reason: shortness of breath or wheezing) Qty: 18 0RF cetirizine [Zyrtec] 10 mg tablet 10 mg PO QDAY PRN (Reason: allergy symptoms) Qty: 30 0RF sodium chloride [Saline Nasal] 0.65 % aerosol,spray 2 spray intranasal QID PRN (Reason: nasal congestion) Qty: 60 0RF azithromycin 250 mg tablet See Rx Instructions .ROUTE .COMPLEX Qty: 6 0RF Rx Instructions: For 250 mg dose pack: take 500 mg today (day 1), then 250 mg for 4 days (days 2-5) ibuprofen 800 mg tablet 800 mg PO TID PRN (Reason: pain) Qty: 30 0RF Referrals: Aggie Pena FNP [Primary Care Provider] - In 1 week Problem List Clinical Impression: Spontaneous Patient/Caregiver Discharge Instructions Education Materials: Understanding Miscarriage ..., Miscarriage Trying Again, Discharge Instructions for ..., ED MISCARRIAGE Completed Additional Instructions: Please follow-up with your primary care provider in the next 24 to 48 hours Please follow-up with your [facility] in the next 24 to 48 hours For any evidence of worsening signs or symptoms return to the emergency room immediately Print Language: Colombian Stand Alone Forms: Alicia Award Info., Work/School Release, Patient Portal Info Letter SUKUMAR/MATT Supervising Physician SUKUMAR/MATT Supervising Physician: Dr. IBRAHIM
[2025-03-08 13:34] LABS: Basophils # (Auto) 0.0 Thou/mm3 (0.0-0.2); Basophils % (Auto) 0 % (0-2.5); Eosinophils # (Auto) 0.0 Thou/mm3 (0.0-0.5); Eosinophils % (Auto) 0 % (0-10); Hematocrit 38.8 % (36.0-46.0); Hemoglobin 13.4 g/dL (12.0-16.0); Immature Granulocytes Auto 0.02 Thou/mm3 (0.00-0.00); Lymphocytes # (Auto) 1.5 Thou/mm3 (1.0-4.8); Lymphocytes % (Auto) 20 % (10-50); Mean Corpuscular HGB Conc 34.5 g/dl (31.0-37.0); Mean Corpuscular Hemoglobin 31.4 pg (25.0-35.0); Mean Corpuscular Volume 91 fL (80-100); Monocytes # (Auto) 0.4 Thou/mm3 (0.0-0.8); Monocytes % (Auto) 6 % (0-12); Neutrophils # (Auto) 5.6 Thou/mm3 (1.8-7.7); Neutrophils % (Auto) 74 % (37-80); Nucleated Red Blood Cell # 0.00 Thou/mm3 (0.00-0.00); Nucleated Red Blood Cell % 0 /100 WBC (0); Platelet Count 264 Thou/mm3 (140-440); RDW Standard Deviation 41.1 fL (36.4-46.3); Red Blood Count 4.27 Miln/mm3 (4.00-5.20); White Blood Count 7.6 Thou/mm3 (3.6-11.0)
[2025-03-08 14:00] LABS: Alanine Aminotransferase 17 U/L (10-49); Albumin, Serum 4.3 gm/dL (3.5-5.0); Albumin/Globulin Ratio 1.7 (1.2-2.2); Alkaline Phosphatase 67 U/L (46-116); Anion Gap 9 (7-16); Aspartate Amino Transferase 20 U/L (0-34); BUN/Creatinine Ratio 11 Ratio (12-20); Beta HCG,Quantitative 530 mIU/mL (<5.0); Bilirubin,Total 0.4 mg/dL (0.3-1.2); Blood Urea Nitrogen 8 mg/dL (9-23); Calcium 9.5 mg/dL (8.3-10.6); Calcium (Corrected) 9.5 mg/dL (8.5-10.1); Carbon Dioxide 24.7 mMol/L (20.0-31.0); Chloride 108 mMol/L (98-107); Creatinine (Component) 0.7 mg/dL (0.6-1.3); Estimated Creatinine Clearance 148.0 mL/min (>60); Globulin 2.6 gm/dL (2.3-3.5); Glucose 94 mg/dL (74-106); Osmolality,Calculated 281 (275-295); Potassium 3.9 mMol/L (3.4-5.1); Sodium 142 mMol/L (136-145); Total Protein 6.9 gm/dL (5.7-8.2); eGFR > 60 See Note
[2025-03-08 15:03] LABS: Collection Type, Urine Clean Catch
[2025-03-08 15:14] LABS: Bacteria,Urine Rare; Bilirubin,Urine Negative (Negative); Blood,Urine 3+ (Negative); Clarity,Urine Turbid (Clear/Hazy); Color,Urine Yellow (Lt Yel-Yel); Glucose, Urine Negative (Negative); Ketones,Urine 4+ (Negative); Leukocyte Esterase,Urine Positive (Negative); Nitrite,Urine Positive (Negative); PH,Urine 6.0 (5.0-7.0); Protein,Urine 1+ (Neg - Trace); RBC,Urine 41 /hpf (0-3); Specific Gravity,Urine 1.032 (1.001-1.035); Squamous Epithelial Cell,Urine 14 /hpf (0-5); Urobilinogen,Urine Negative mg/dL (0.0-1.0); WBC,Urine 104 /hpf (0-5)
== END 2025-03-08 15:04 | disposition home or self-care (01) ==
PROVIDERS: Nurse Practitioner Family; Emergency Provider Emergency Medicine; PCP Nurse Practitioner Family
DX: O03.9 Complete or unspecified spontaneous abortion without complication (principal)
CPT/HCPCS: 36415; 76817; 80053; 81001; 84702; 85025; 86900; 86901; 99284

== ENCOUNTER 2025-08-04 12:11 | Emergency (ER) | payer MEDICAID, SELFPAY ==
[2025-08-04 12:36] VITALS: BP 130/68; PULSE 77; RESP 18; TEMP 36.9; O2SAT 100; BMI 25.8
--- NOTE | 2025-08-04 12:40 | EDNOTE_ITS ---
Lower Extremity Injury RME/HPI General Chief Complaint: Ankle/Foot Injury Stated Complaint: LEFT FOOT PAIN Time Seen by Provider: 08/04/25 12:25 Source: patient Arrival date/time: 08/04/25 12:11 19-year-old female with no known medical history presents to the emergency room with a chief complaint of tenderness to the sole of her left foot x 1 week. Patient denies any trauma Mode of arrival: ambulatory Limitations: no limitations Related Data Previous Rx's ?Medication ?Instructions ?Recorded albuterol sulfate 90 mcg/actuation 2 puff inhalation Q ID PRN 06/10/20 aerosol inhaler shortness of breath or wheez ing #18 grams cetirizine 10 mg tablet (Zyrtec) 10 mg PO QDAY PRN all ergy symptoms 06/10/20 #30 tabs sodium chloride 0.65 % nasal spray 2 spray intranasal QID PRN nasal 06/10/20 aerosol (Saline Nasal) congestion #60 mL ibuprofen 800 mg tablet 800 mg PO TID PRN pain #30 t abs 07/18/21 ibuprofen 800 mg tablet 800 mg PO TID PRN pain #30 t abs 02/21/24 azithromycin 250 mg tablet See Rx Instructions PO .COM PLEX #6 08/05/24 tabs ibuprofen 800 mg tablet 800 mg PO Q8H #30 tabs 08/04 Allergies Allergy/AdvReac Type Severity Reaction Status Date / Time albuterol Allergy Severe SLEEPY Verified 08/04/25 12:13 Review of Systems Review of Systems Systems Reviewed: All systems reviewed, normal except as documented Constitutional Constitutional: Reports system reviewed and no additional complaints, except as documented, Denies fatigue, Denies fever(s), Denies headache(s) and Denies weakness Eyes Eyes: Reports system reviewed and no additional complaints, except as documented, Denies blurry vision and Denies change in vision ENT Ears, Nose, Mouth, and Throat: Reports system reviewed and no additional complaints, except as documented, Denies otalgia, Denies headache(s), Denies nasal congestion, Denies throat swelling and Denies vertigo Cardiovascular Cardiovascular: Reports system reviewed and no additional complaints, except as documented, Denies chest pain, Denies dyspnea and Denies dyspnea on exertion Respiratory Respiratory: Reports system reviewed and no additional complaints, except as documented, Denies chest congestion, Denies cough, Denies dyspnea, Denies dyspnea on exertion and Denies wheezing Gastrointestinal Gastrointestinal: Reports system reviewed and no additional complaints, except as documented, Denies abdominal pain, Denies cramping, Denies nausea and Denies vomiting Genitourinary Genitourinary: Reports system reviewed and no additional complaints, except as documented Musculoskeletal Musculoskeletal: Reports system reviewed and no additional complaints, except as documented, Denies arthralgias, Denies back pain, Denies joint swelling, Reports muscle weakness and Reports stiffness Integumentary/Breasts Skin/Breast: Reports system reviewed and no additional complaints, except as documented and Denies wounds Neurologic Neurologic: Reports system reviewed and no additional complaints, except as documented, Denies confusion, Denies headache(s), Denies lack of coordination, Denies vertigo and Denies weakness Psychiatric Psychiatric: Reports system reviewed and no additional complaints, except as documented, Denies anxiety, Denies confusion, Denies depression, Denies paranoia, Denies suicidal ideation and Denies tactile hallucinations Endocrine Endocrine: Reports system reviewed and no additional complaints, except as documented and Denies fatigue Hematologic/Lymphatic Hematologic/Lymphatic: Reports system reviewed and no additional complaints, except as documented and Denies lymphadenopathy Allergic/Immunologic Allergic/Immunologic: Reports system reviewed and no additional complaints, except as documented, Denies throat swelling, Denies urticaria and Denies wheezing Past Medical History Past Medical History CARDIAC: Negative Congestive Heart Failure RESPIRATORY: Negative Chronic Obstructive Pulmonary Disease (COPD) GENITOURINARY: Negative Renal Disease ENDOCRINE: Negative Diabetes Mellitus Type 1 or Diabetes Mellitus Type 2 Social History SMOKING STATUS: Never smoker ED Exam General Limitations: Present no limitations General appearance: Present alert and in no apparent distress Head Head exam: Present atraumatic Eye Eye exam: Present normal appearance, PERRL and EOMI ENT ENT exam: Present normal exam, normal oropharynx and mucous membranes moist Neck Neck exam: Present normal inspection, full ROM and trachea midline Chest Chest inspection: Present normal inspection and symmetric chest wall rise Respiratory Respiratory exam: Present normal lung sounds bilaterally Cardiovascular Cardiovascular exam: Present regular rate, normal rhythm and normal heart sounds Abdominal Exam Abdominal exam: Present soft and normal bowel sounds Extremities Exam Extremities exam: Present normal inspection and full ROM Expanded Lower Extremity Exam Hip/Pelvis exam: Present normal inspection Upper leg exam: Present normal inspection Knee exam: Present normal inspection Lower leg exam: Present normal inspection Ankle exam: Present normal inspection Foot/toe exam: Present normal inspection Neurovascular/Tendon exam: Present normal capillary refill Gait: observed and normal Back Exam Back exam: Present normal inspection and full ROM Neurological Exam Neurological exam: Present alert, oriented X3 and CN II-XII intact Psychiatric Psychiatric exam: Present normal affect and normal mood Skin Skin exam: Present warm, dry, intact and normal color Course Quality Measures none Orders Category Date Time Status Ketorolac Inj [Toradol Inj] Med 08/04/25 12:39 Once 30 mg IM X1 ONE Vital Signs Vital signs: Vital Signs Temperature 98.5 F 08/04/25 12:36 Pulse Rate 77 08/04/25 12:36 Respiratory Rate 18 08/04/25 12:36 Blood Pressure 130/68 08/04/25 12:36 Pulse Oximetry (%) 100 08/04/25 12:36 Oxygen Delivery Method Room Air 08/04/25 12:36 Extremity Injury, Lower MDM Narrative MDM Narrative:: 19-year-old female with no known medical history presents to the emergency room with a chief complaint of tenderness to the sole of her left foot x 1 week. Patient denies any trauma Patient is hemodynamically stable and in no apparent distress Physical examination shows tenderness to the patient's sole of the foot. There is no trauma the patient has full range of motion there is no erythema there is no tenderness of the fifth metatarsal joint. The findings are consistent with plantars fasciitis Patient was discharged and educated to follow-up with primary care provider in the next 24 to 48 hours and return to the emergency room for any evidence of worsening signs or symptoms Patient data External records reviewed:: [facility] previous records Clinical information provided by:: patient Social determinants that could affect healthcare access:: none Patient has the following chronic illnesses:: No chronic illness How is presenting disease/condition affected by chronic disease/condition?: no chronic disease Evaluation data The following diagnostics were reviewed and interpreted by me:: lab results and radiology exam(s) Lab and/or radiology exams considered but not ordered:: Labs and radiology exams considered and ordered Interpretation Summary: N/A Medications / Prescriptions Medications or Prescriptions considered but not ordered:: Medication given Medication administrations:: Medication Administration History Ketorolac Tromethamine (Ketorolac Inj 60 Mg/2 Ml Vial) 30 mg IM X1 ONE Stop: 08/04/25 12:40 Medication given Consultations Consultation(s) initiated? (list below): No Diagnosis Extremity Injury, Lower Differential Diagnosis: other (Plantar fasciitis/foot sprain) Most likely diagnosis given after review of the tests above:: Plantar fasciitis Admission Indicated Admission indicated?: not indicated Admission Request Was there a request for admission?: No Disposition Plan Disposition Plan: Discharge Discharge Attestation Discharge Attestation: The patient and all family members were given an opportunity to ask questions and understood the discharge instructions. Discharge instructions specifically effects, indications for sooner follow up or return to the emergency department, and the expected course of current diagnosis. Patient condition: Stable Discharge Plan Plan Patient Disposition: HOME (Self Care) Discharge Disposition comment: Stable Prescriptions/Referrals Prescriptions/Med Rec: New ibuprofen 800 mg tablet 800 mg PO Q8H Qty: 30 0RF No Action ibuprofen 800 mg tablet 800 mg PO TID PRN (Reason: pain) Qty: 30 0RF albuterol sulfate 90 mcg/actuation HFA aerosol inhaler 2 puff inhalation QID PRN (Reason: shortness of breath or wheezing) Qty: 18 0RF cetirizine [Zyrtec] 10 mg tablet 10 mg PO QDAY PRN (Reason: allergy symptoms) Qty: 30 0RF sodium chloride [Saline Nasal] 0.65 % aerosol,spray 2 spray intranasal QID PRN (Reason: nasal congestion) Qty: 60 0RF azithromycin 250 mg tablet See Rx Instructions .ROUTE .COMPLEX Qty: 6 0RF Rx Instructions: For 250 mg dose pack: take 500 mg today (day 1), then 250 mg for 4 days (days 2-5) ibuprofen 800 mg tablet 800 mg PO TID PRN (Reason: pain) Qty: 30 0RF Problem List Clinical Impression: Plantar fasciitis of left foot Patient/Caregiver Discharge Instructions Education Materials: Understanding Plantar Fasciitis, Treating Plantar Fasciitis, ED Plantar Fasciitis Additional Instructions: Please follow-up with your primary care provider in the next 24 to 48 hours Medication was sent to your pharmacy please pick it up and take it as indicated For any evidence of worsening signs or symptoms return to the emergency room immediately Print Language: Tunisian Stand Alone Forms: Alicia Award Info., Work/School Release, Patient Portal Info Letter SUKUMAR/MATT Supervising Physician SUKUMAR/MATT Supervising Physician: Dr. Martins
[2025-08-04] MEDS: KETOROLAC INJ 60 MG/2 ML VIAL 30 MG IM (12:50)
== END 2025-08-04 13:37 | disposition home or self-care (01) ==
LOC: SERX 13:09
PROVIDERS: Emergency Provider Emergency Medicine
DX: M72.2 Plantar fascial fibromatosis (principal)
CPT/HCPCS: 96372; 99282; J1885